=== PATIENT | female | born 1950 | race Caucasian/White ===

== ENCOUNTER 2018-02-11 22:01 | Inpatient (IN) | payer MEDICARE, OTHER ==
[~2018-02-11] VITALS: Ht 157.5 cm; Wt 110.0 kg
--- NOTE | 2018-02-11 22:15 | NUR ---
assessment made. PA at bedside for patient evaluation.
[2018-02-11] MEDS ORDERED: SODIUM CHLORIDE 0.9% 1,000ML IVBOLUS ONE (22:30)
[2018-02-11] MEDS ORDERED: SODIUM CHLORIDE FLUSH 10ML SYR IVF ONE (22:30)
--- NOTE | 2018-02-11 22:37 | NUR ---
patient to CT scan.
--- NOTE | 2018-02-11 22:52 | NUR ---
back from CT scan. utility technician at bedside for blood draw. EKG done.
[2018-02-11 23:03] LABS: BASOPHILS # (AUTO) 0.03 x10^3/uL (0-0.1); BASOPHILS % (AUTO) 0 % (0-1); EOSINOPHILS # (AUTO) 0.11 x10^3/uL (0-0.4); EOSINOPHILS % (AUTO) 1 % (1-7); LYMPHOCYTES # (AUTO) 0.82 x10^3/uL (1-3.4); LYMPHOCYTES % (AUTO) 8 % (22-44); MD NO; MEAN CORPUSCULAR HEMOGLOBIN 30.3 pg (27.0-34.8); MEAN CORPUSCULAR HGB CONC 34.2 g/dL (32.4-35.8); MEAN CORPUSCULAR VOLUME 88.6 fL (80-100); MEAN PLATELET VOLUME 9.5 fL (7.4-10.4); MONOCYTES # (AUTO) 0.55 x10^3/uL (0.2-0.8); MONOCYTES % (AUTO) 6 % (2-9); NEUTROPHILS # (AUTO) 8.47 x10^3/uL (1.8-6.8); NEUTROPHILS % (AUTO) 85 % (42-75); PH, VENOUS 7.303 pH (7.320-7.420); PLATELET COUNT 250 x10^3/uL (130-400); RED BLOOD COUNT 4.98 x10^6/uL (3.82-5.3); RED CELL DISTRIBUTION WIDTH 14.4 % (9.6-15.2)
[2018-02-11 23:14] LABS: ALANINE AMINOTRANSFERASE 26 U/L (12-78); ALBUMIN 3.2 g/dL (3.4-5.0); ANION GAP 18 mmol/L (5-15); CALCIUM 10.2 mg/dL (8.5-10.1); CHLORIDE 92 mmol/L (98-107); CREATININE 1.42 mg/dL (0.55-1.02)
[2018-02-11 23:19] LABS: ALKALINE PHOSPHATASE 87 U/L (45-117); BILIRUBIN,TOTAL 0.4 mg/dL (0.2-1.0); TOTAL PROTEIN 7.2 g/dL (6.4-8.2); TROPONIN I < 0.015 ng/mL (0.000-0.045)
[2018-02-11] MEDS ORDERED: INSULIN REGULAR 100 UNITS/ML, 3ML VIAL ONE (23:30)
[2018-02-11] MEDS ORDERED: INSULIN REGULAR 100 UNITS/ML, 3ML VIAL IVPush ONE (23:30)
[2018-02-11 23:38] LABS: MICROSCOPIC AUTO
[2018-02-11 23:39] LABS: CULTURE INDICATED? NO
[2018-02-11 23:40] LABS: ACETONE, SERUM Large (80mg/dL) mg/dL (Negative)
[2018-02-11] MEDS ORDERED: LOSA25TA25 PO (23:50)
[2018-02-11] MEDS ORDERED: MELO15TA24 PO (23:50)
[2018-02-11] MEDS ORDERED: PITA2TAB2 PO (23:50)
[2018-02-11] MEDS ORDERED: GABA100C PO (23:50)
[2018-02-11] MEDS ORDERED: LEVO175T5 PO (23:50)
[2018-02-11] MEDS ORDERED: FURO-93 PO (23:50)
[2018-02-11] MEDS ORDERED: BACL-19 PO (23:50)
[2018-02-11] MEDS ORDERED: CYCL-259 PO (23:50)
[2018-02-11] MEDS ORDERED: INSU100V8 SQ (23:50)
[2018-02-11] MEDS ORDERED: HYDR-3240 PO (23:50)
[2018-02-12] MEDS ORDERED: INSULIN GLARGINE 100 UNITS/ML, PEN SQ-INSULIN SCH (00:30)
[2018-02-12] MEDS ORDERED: POLYETHYLENE GLYCOL 17 GM PACKET PO PRN (00:30)
[2018-02-12] MEDS ORDERED: INSULIN LISPRO 100 UNITS/ML, PEN SQ-INSULIN SCH ×2 (00:30→11:00)
[2018-02-12] MEDS ORDERED: SODIUM CHLORIDE 0.9% 1,000ML IVBOLUS ONE (00:30)
[2018-02-12] MEDS ORDERED: hydrALAzine 20 MG/ML, 1ML IVPush PRN (00:30)
[2018-02-12] MEDS ORDERED: BISACODYL 10 MG SUPP PR PRN (00:30)
[2018-02-12] MEDS ORDERED: ONDANSETRON ODT 4 MG PO PRN (00:30)
--- NOTE | 2018-02-12 00:34 | NUR ---
JENNIFER hospitalist at bedside. admission orders made. bed assigned. report to HAVEN Khan.
--- NOTE | 2018-02-12 00:38 | NUR ---
TASK RN: FSBS "HIGH" ON GLUCOMETER. LAB IN TO DRAW ADDITIONAL LABS. GLUCOSE ADDED FOR ACCURATE READ.
[2018-02-12 01:06] LABS: HEMOGLOBIN A1C 14.5 % (4.2-6.3)
[2018-02-12 01:14] VITALS: BP 141/77
[2018-02-12] MEDS: SODIUM CHLORIDE 0.9% 1,000 ML IV SCH ×5 (01:30→20:30)
[2018-02-12] MEDS: HEPARIN 5,000 UNITS/ML, 1ML SQ SCH ×3 (01:47→16:34)
[2018-02-12 05:33] LABS: BASOPHILS # (AUTO) 0.02 x10^3/uL (0-0.1); BASOPHILS % (AUTO) 0 % (0-1); EOSINOPHILS # (AUTO) 0.09 x10^3/uL (0-0.4); EOSINOPHILS % (AUTO) 1 % (1-7); LYMPHOCYTES % (AUTO) 17 % (22-44); MD NO; MEAN CORPUSCULAR HEMOGLOBIN 29.6 pg (27.0-34.8); MEAN CORPUSCULAR HGB CONC 33.8 g/dL (32.4-35.8); MEAN CORPUSCULAR VOLUME 87.6 fL (80-100); MEAN PLATELET VOLUME 9.4 fL (7.4-10.4); MONOCYTES # (AUTO) 0.66 x10^3/uL (0.2-0.8); MONOCYTES % (AUTO) 7 % (2-9); NEUTROPHILS # (AUTO) 7.49 x10^3/uL (1.8-6.8); NEUTROPHILS % (AUTO) 75 % (42-75); PLATELET COUNT 253 x10^3/uL (130-400); RED CELL DISTRIBUTION WIDTH 14.3 % (9.6-15.2)
[2018-02-12 05:45] LABS: CALCIUM 9.5 mg/dL (8.5-10.1); CHLORIDE 101 mmol/L (98-107)
[2018-02-12 05:52] LABS: ALANINE AMINOTRANSFERASE 23 U/L (12-78); ALBUMIN 2.9 g/dL (3.4-5.0); ALKALINE PHOSPHATASE 75 U/L (45-117); ANION GAP 11 mmol/L (5-15); BILIRUBIN,TOTAL 0.5 mg/dL (0.2-1.0); CREATININE 1.35 mg/dL (0.55-1.02); TOTAL PROTEIN 6.4 g/dL (6.4-8.2)
[2018-02-12 07:30] VITALS: BP 158/95
[2018-02-12] MEDS: INSULIN LISPRO 100 UNITS/ML, PEN SQ-INSULIN SCH ×4 (08:03→21:14)
[2018-02-12] MEDS: INSULIN GLARGINE 100 UNITS/ML, PEN SQ-INSULIN SCH ×3 (08:04→21:15)
[2018-02-12] MEDS: SENNA/DOCUSATE TABLET PO SCH ×2 (09:00→09:26)
[2018-02-12] MEDS: LEVOTHYROXINE 175 MCG TABLET PO SCH (09:00)
[2018-02-12] MEDS: LOSARTAN 25MG TABLET PO SCH ×2 (09:00→09:26)
[2018-02-12] MEDS ORDERED: LEVOTHYROXINE 100 MCG TABLET ONE (09:23)
[2018-02-12] MEDS ORDERED: LEVOTHYROXINE 75 MCG TABLET ONE (09:23)
[2018-02-12 19:09] VITALS: BP 149/80
[2018-02-12] MEDS: GABAPENTIN 100 MG CAPSULE PO SCH (21:00)
[2018-02-12] MEDS: PITAVASTATIN CALCIUM 2 MG PO SCH (22:06)
[2018-02-13] MEDS: SODIUM CHLORIDE 0.9% 1,000 ML IV SCH ×2 (01:30→06:33)
[2018-02-13] MEDS: HEPARIN 5,000 UNITS/ML, 1ML SQ SCH ×3 (02:34→17:40)
[2018-02-13 02:37] VITALS: BP 151/57
[2018-02-13] MEDS: ACETAMINOPHEN 325 MG TABLET PO PRN ×2 (05:20→11:06)
[2018-02-13 06:03] LABS: BASOPHILS # (AUTO) 0.03 x10^3/uL (0-0.1); BASOPHILS % (AUTO) 1 % (0-1); EOSINOPHILS # (AUTO) 0.42 x10^3/uL (0-0.4); EOSINOPHILS % (AUTO) 7 % (1-7); LYMPHOCYTES # (AUTO) 2.01 x10^3/uL (1-3.4); LYMPHOCYTES % (AUTO) 32 % (22-44); MD NO; MEAN CORPUSCULAR HEMOGLOBIN 29.1 pg (27.0-34.8); MEAN CORPUSCULAR VOLUME 88.2 fL (80-100); MEAN PLATELET VOLUME 9.1 fL (7.4-10.4); MONOCYTES # (AUTO) 0.36 x10^3/uL (0.2-0.8); MONOCYTES % (AUTO) 6 % (2-9); NEUTROPHILS # (AUTO) 3.42 x10^3/uL (1.8-6.8); NEUTROPHILS % (AUTO) 55 % (42-75); PLATELET COUNT 221 x10^3/uL (130-400); RED BLOOD COUNT 4.18 x10^6/uL (3.82-5.3); RED CELL DISTRIBUTION WIDTH 14.2 % (9.6-15.2)
[2018-02-13 06:08] LABS: ALBUMIN 2.4 g/dL (3.4-5.0); ANION GAP 5 mmol/L (5-15); CALCIUM 8.1 mg/dL (8.5-10.1); CHLORIDE 109 mmol/L (98-107)
[2018-02-13 06:12] LABS: ALANINE AMINOTRANSFERASE 25 U/L (12-78); ALKALINE PHOSPHATASE 58 U/L (45-117); BILIRUBIN,TOTAL 0.4 mg/dL (0.2-1.0); CREATININE 0.85 mg/dL (0.55-1.02); TOTAL PROTEIN 5.6 g/dL (6.4-8.2)
[2018-02-13 06:49] LABS: HEMOGLOBIN A1C 14.9 % (4.2-6.3)
[2018-02-13 07:18] VITALS: BP 143/71
[2018-02-13] MEDS: INSULIN LISPRO 100 UNITS/ML, PEN SQ-INSULIN SCH ×4 (07:20→21:05)
[2018-02-13] MEDS ORDERED: LEVOTHYROXINE 75 MCG TABLET ONE (07:22)
[2018-02-13] MEDS ORDERED: LEVOTHYROXINE 100 MCG TABLET ONE (07:22)
[2018-02-13] MEDS: LOSARTAN 25MG TABLET PO SCH (07:23)
[2018-02-13] MEDS: SENNA/DOCUSATE TABLET PO SCH (07:23)
[2018-02-13] MEDS: LEVOTHYROXINE 175 MCG TABLET PO SCH (07:23)
[2018-02-13] MEDS: INSULIN GLARGINE 100 UNITS/ML, PEN SQ-INSULIN SCH (10:00)
[2018-02-13 13:14] VITALS: BP 155/74
[2018-02-13 20:17] VITALS: BP 164/84
[2018-02-13] MEDS: GABAPENTIN 100 MG CAPSULE PO SCH (21:00)
[2018-02-13] MEDS ORDERED: INSULIN GLARGINE 100 UNITS/ML, PEN SQ-INSULIN ONE (21:00)
[2018-02-13] MEDS ORDERED: INSULIN GLARGINE 100 UNITS/ML, PEN SQ-INSULIN SCH ×2 (21:00)
[2018-02-13] MEDS: PITAVASTATIN CALCIUM 2 MG PO SCH (21:05)
[2018-02-14] MEDS: HEPARIN 5,000 UNITS/ML, 1ML SQ SCH ×3 (01:10→16:30)
[2018-02-14 02:33] VITALS: BP 184/74
[2018-02-14] MEDS: ACETAMINOPHEN 325 MG TABLET PO PRN (04:55)
[2018-02-14 06:51] LABS: ALBUMIN 2.7 g/dL (3.4-5.0); ANION GAP 7 mmol/L (5-15); CALCIUM 8.2 mg/dL (8.5-10.1); CHLORIDE 106 mmol/L (98-107); CREATININE 0.88 mg/dL (0.55-1.02)
[2018-02-14 07:11] VITALS: BP 189/77
[2018-02-14] MEDS ORDERED: LEVOTHYROXINE 75 MCG TABLET ONE (07:49)
[2018-02-14] MEDS ORDERED: LEVOTHYROXINE 100 MCG TABLET ONE (07:49)
[2018-02-14] MEDS: INSULIN LISPRO 100 UNITS/ML, PEN SQ-INSULIN SCH ×3 (07:52→16:46)
[2018-02-14] MEDS: LOSARTAN 25MG TABLET PO SCH (07:53)
[2018-02-14] MEDS: SENNA/DOCUSATE TABLET PO SCH (07:54)
[2018-02-14] MEDS ORDERED: AMLODIPINE 5 MG TABLET PO SCH (09:00)
[2018-02-14 12:57] VITALS: BP 150/81
[2018-02-14] MEDS ORDERED: INSULIN GLARGINE 100 UNITS/ML, PEN SQ-INSULIN SCH (21:00)
== END 2018-02-14 17:05 | disposition home or self-care (01) | DRG 682 ==
LOC: ED 23:38 → EDIP 02-12 → 4NOR 02-12 00:58
PROVIDERS: ADMIT Hospitalist; ATTEND Hospitalist
PROC: 0T9B70Z Drainage of Bladder with Drainage Device, Via Natural or Artificial Opening (ICD-10-PCS; principal; 2018-02-11)
DX: N17.9 Acute kidney failure, unspecified (principal); E11.00 Type 2 diabetes mellitus with hyperosmolarity without nonketotic hyperglycemic-hyperosmolar coma (NKHHC); G93.41 Metabolic encephalopathy; E87.1 Hypo-osmolality and hyponatremia; E87.2 Acidosis; E44.1 Mild protein-calorie malnutrition; Z68.41 Body mass index [BMI] 40.0-44.9, adult; E11.65 Type 2 diabetes mellitus with hyperglycemia; E11.42 Type 2 diabetes mellitus with diabetic polyneuropathy; E66.01 Morbid (severe) obesity due to excess calories; E86.0 Dehydration; E89.0 Postprocedural hypothyroidism; G89.29 Other chronic pain; G93.89 Other specified disorders of brain; Z59.0 Homelessness; Z90.710 Acquired absence of both cervix and uterus; Z79.4 Long term (current) use of insulin; Z90.49 Acquired absence of other specified parts of digestive tract; Z91.83 Wandering in diseases classified elsewhere
CPT/HCPCS: 36415; 70450; 71045; 80048; 80053; 80307; 81001; 82010; 82040; 82140; 82803; 82947; 82962; 83036; 83735; 83930; 84100; 84484; 85025; 93005; 96361; 96374; G0378; J1644; J0360; J1815; J7030